=== PATIENT | female | born 1985 | race American Indian/Alaskan Native ===

== ENCOUNTER 2021-11-26 20:56 | Emergency (ER) | payer OTHER ==
[~2021-11-26] VITALS: Ht 157.5 cm; Wt 59.0 kg
[2021-11-26] MEDS ORDERED: TYLENOL (21:19)
[2021-11-26] MEDS ORDERED: ZITHROMAX (21:20)
== END 2021-11-27 00:35 | disposition home or self-care (01) ==
LOC: ER 20:56
DX: O99.519 Diseases of the respiratory system complicating pregnancy, unspecified trimester (principal); Z88.6 Allergy status to analgesic agent; Z88.0 Allergy status to penicillin; Z20.822 Contact with and (suspected) exposure to COVID-19

== ENCOUNTER 2022-04-29 10:01 | Outpatient (CLI) | payer OTHER ==
[~2022-04-29 10:01] MED LIST: TYLENOL; ZITHROMAX
== END 2022-04-29 10:47 | disposition home or self-care (01) ==
LOC: NST 10:01
PROVIDERS: ATTEND Obstetrics & Gynecology
DX: Z34.82 Encounter for supervision of other normal pregnancy, second trimester (principal)

== ENCOUNTER 2022-06-14 10:30 | Outpatient (CLI) | payer OTHER | END 2022-06-14 11:20 | disposition home or self-care (01) | LOC: NST 10:30 | PROVIDERS: ATTEND Obstetrics & Gynecology Gynecology | DX: Z34.83 Encounter for supervision of other normal pregnancy, third trimester (principal) ==

== ENCOUNTER 2022-07-05 10:23 | Inpatient (IN) | payer OTHER ==
[~2022-07-05] VITALS: Ht 157.5 cm; Wt 68.0 kg
== END 2022-07-15 11:55 | disposition home or self-care (01) | DRG 807 ==
LOC: LDR 07-13 06:36 → OB/GYN 07-13 06:36 → LDR 07-13 07:44 → OB/GYN 07-13 13:16
PROVIDERS: ADMIT Obstetrics & Gynecology; ATTEND Obstetrics & Gynecology
PROC: 10E0XZZ Delivery of Products of Conception, External Approach (ICD-10-PCS; principal; 2022-07-13)
PROC: 0UQG7ZZ Repair Vagina, Via Natural or Artificial Opening (ICD-10-PCS; 2022-07-13)
PROC: 4A1HXCZ Monitoring of Products of Conception, Cardiac Rate, External Approach (ICD-10-PCS; 2022-07-13)
DX: O70.1 Second degree perineal laceration during delivery (principal); Z37.0 Single live birth; Z3A.39 39 weeks gestation of pregnancy; Z20.822 Contact with and (suspected) exposure to COVID-19